=== PATIENT | female | born 1965 | race Caucasian/White ===

== ENCOUNTER → 2023-11-16 | Outpatient (CLI) | payer MEDICAID ==
[~2023-11-16] VITALS: Ht 154.9 cm; Wt 56.2 kg
[2023-11-16 16:18] VITALS: PULSE 74; RESP 16; O2SAT 94
[2023-11-16] MEDS: albuterol 2.5 MG/3 ML nebule NEB ONE (16:58)
== END | disposition home or self-care (01) ==
LOC: RT 15:45
PROVIDERS: ATTEND Physician Assistant Medical
DX: R05.3 Chronic cough (principal)
CPT/HCPCS: 94060; 94760